=== PATIENT | female | born 1980 | race African-American/Black ===

== ENCOUNTER 2017-02-04 20:21 | Emergency (ER) | payer OTHER ==
[~2017-02-04] VITALS: Ht 160 cm; Wt 49.9 kg
[~2017-02-04 20:21] MED LIST: CLEOCIN HCL150 MG PO; LORTABELXR PO; NOHOMEMEDICATIONS; NORCO 5-325 TA1 EACH PO; PENICILLIN V P500 MG PO; PENICILLIN VK500 M1 PO; PERIDEX 0.12%473 M1 SSP; PRENATAL
[2017-02-04] MEDS ORDERED: IBUPROFEN 600600 M1 PO (21:13)
[2017-02-04] MEDS ORDERED: CLEOCIN HCL300 MG PO (21:13)
[2017-02-04 21:36] VITALS: BP 149/92
== END 2017-02-04 21:37 | disposition home or self-care (01) ==
LOC: ER 20:21
DX: K04.7 Periapical abscess without sinus (principal); Z88.5 Allergy status to narcotic agent; Z88.6 Allergy status to analgesic agent; F17.210 Nicotine dependence, cigarettes, uncomplicated; F10.99 Alcohol use, unspecified with unspecified alcohol-induced disorder

== ENCOUNTER 2017-03-15 20:10 | Emergency (ER) | payer OTHER ==
[~2017-03-15 20:10] MED LIST changes: +CLEOCIN HCL300 MG PO; +IBUPROFEN 600600 M1 PO
[2017-03-15 20:11] VITALS: BP 169/112
== END 2017-03-15 21:18 | disposition home or self-care (01) ==
LOC: ER 20:10
DX: Z53.21 Procedure and treatment not carried out due to patient leaving prior to being seen by health care provider (principal)

== ENCOUNTER 2018-02-27 18:44 | Emergency (ER) | payer OTHER ==
[~2018-02-27] VITALS: Ht 160 cm; Wt 49.9 kg
[2018-02-27 20:20] LABS: ABSOLUTE NEUTROPHILS 8.7 thou/uL (1.4-8.2); BASOPHILS 0.5 % (0.0-2.0); EOSINOPHILS 2.4 % (0.0-3.0); HEMATOCRIT 37.5 % (37.0-47.0); HEMOGLOBIN 12.8 gm/dL (12.0-15.0); LYMPHOCYTES 26.3 % (24.0-44.0); MCH 31.8 pg (26.0-34.0); MCHC 34.1 g/dL (28.0-37.0); MCV 93.3 fL (80.0-100.0); MONOCYTES 7.1 % (1.0-8.0); PLATELET COUNT 261 thou/uL (150-400); POLYS 63.7 % (36.0-66.0); RBC 4.02 mil/uL (4.20-5.00); RDW 14.7 % (10.5-14.5); WBC 13.7 thou/uL (4.0-11.0)
[2018-02-27 20:32] LABS: CALCIUM 8.4 mg/dL (8.5-10.1); CREATININE 0.8 mg/dL (0.6-1.0); POTASSIUM 3.7 mmol/L (3.5-5.1)
[2018-02-27] MEDS ORDERED: AUGMENTIN 875-1 EACH PO (21:45)
[2018-02-27 22:04] VITALS: BP 103/49
== END 2018-02-27 22:04 | disposition home or self-care (01) ==
LOC: ER 18:44
PROVIDERS: Physician Assistant
DX: K12.2 Cellulitis and abscess of mouth (principal); F17.210 Nicotine dependence, cigarettes, uncomplicated; Z88.5 Allergy status to narcotic agent

== ENCOUNTER 2019-01-01 14:29 | Emergency (ER) | payer OTHER ==
[~2019-01-01] VITALS: Ht 160 cm; Wt 54.4 kg
[~2019-01-01 14:29] MED LIST changes: +AUGMENTIN 875-1 EACH PO
[2019-01-01] MEDS ORDERED: PREPLUS CA-FE1 EACH PO (14:50)
[2019-01-01 15:01] LABS: BASOPHILS 0.7 % (0.0-2.0); EOSINOPHILS 2.2 % (0.0-3.0); HEMATOCRIT 36.7 % (37.0-47.0); HEMOGLOBIN 12.7 gm/dL (12.0-15.0); LYMPHOCYTES 25.8 % (24.0-44.0); MCH 32.4 pg (26.0-34.0); MCHC 34.6 g/dL (28.0-37.0); MCV 93.7 fL (80.0-100.0); MONOCYTES 5.7 % (1.0-8.0); PLATELET COUNT 241 thou/uL (150-400); POLYS 65.6 % (36.0-66.0); RBC 3.92 mil/uL (4.20-5.00); RDW 14.4 % (10.5-14.5); WBC 10.6 thou/uL (4.0-11.0)
[2019-01-01 15:03] LABS: URINE BILIRUBIN NEGATIVE (Negative); URINE BLOOD TRACE (Negative); URINE CLARITY CLEAR; URINE COLOR YELLOW; URINE GLUCOSE-RANDOM* NEGATIVE (Negative); URINE KETONES NEGATIVE (Negative); URINE LEUKOCYTES-REFLEX NEGATIVE (Negative); URINE NITRITE-REFLEX NEGATIVE (Negative); URINE PROTEIN (DIPSTICK) NEGATIVE (Negative); URINE UROBILINOGEN 0.2 E.U./dl (0.2-1.0)
[2019-01-01 15:05] LABS: CALCIUM 8.8 mg/dL (8.5-10.1); CREATININE 0.6 mg/dL (0.6-1.0); POTASSIUM 3.5 mmol/L (3.5-5.1)
[2019-01-01] MEDS ORDERED: ULTRAM 50MG TAB50 MG PO (17:51)
[2019-01-01 17:56] VITALS: BP 99/60
== END 2019-01-01 17:57 | disposition home or self-care (01) ==
LOC: ER 14:29
PROVIDERS: Emergency Medicine
DX: O03.4 Incomplete spontaneous abortion without complication (principal); O99.331 Smoking (tobacco) complicating pregnancy, first trimester; Z88.5 Allergy status to narcotic agent; Z88.8 Allergy status to other drugs, medicaments and biological substances; Z3A.12 12 weeks gestation of pregnancy